=== PATIENT | female | born 1990 | race African-American/Black ===

== ENCOUNTER → 2020-03-02 07:42 | Outpatient (CLI) | payer BC, MEDICAID, SELFPAY ==
--- NOTE | ~2020-03-02 | US_ITS ---
EXAMINATION: US OB >= 14 weeks Fetus DATE: 03/02/2020 08:28 INDICATION: Encounter for supervision are normal . TECHNIQUE: Real-time ultrasound of the pelvis was performed. COMPARISON: None. FINDINGS: There is a single living fetus in breech presentation. The placenta is anterior, 7.2 cm from the cer vix. heart rate is 142 beats per minute (bpm). The amniotic fluid volume is subjectively normal . The following biometric data were obtained: Biparietal diameter (BPD): 3.3 cm; head circumference (HC): 12.8 cm; abdominal circumference (AC): 10 .2 cm; femur length (FL): 1.9 cm. These measurements are concordant. Estimated weight is 144 g +/- 22 g, which correlates with 27th percentile when 08/15/20 is used a s estimated date of delivery. As single measurements, these parameters are each equal to the following estimated gestational ages w ith ranges of +/- 2 standard deviations: BPD: 16 weeks 2 days (15 weeks 1 days - 17 weeks 3 days). HC: 16 weeks 3 days (15 weeks 2 days - 17 weeks 5 days). AC: 16 weeks 2 days (14 weeks 4 days - 17 weeks 6 days). FL: 15 weeks 5 days (14 weeks 3 days - 17 weeks 1 days). estimated gestational age based solely on measurements from this exam is 16 weeks 1 days +/- 1 weeks 1 days. IMPRESSION: 1. Single living fetus in breech presentation. 2. Estimated weight is 144 g +/- 22 g, which correlates with 27th percentile when 08/15/20 is us ed as estimated date of delivery. Reviewed, dictated and finalized at location A. IMPRESSION: 1. Single living fetus in breech presentation. 2. Estimated weight is 144 g +/- 22 g, which correlates with 27th percen tile when 08/15/20 is used as estimated date of delivery.
== END ==
PROVIDERS: Visit Provider Obstetrics & Gynecology
DX: Z34.92 Encounter for supervision of normal pregnancy, unspecified, second trimester (principal); Z3A.16 16 weeks gestation of pregnancy
CPT/HCPCS: 76805

== ENCOUNTER → 2020-03-23 10:47 | Outpatient (CLI) | payer BC, MEDICAID, SELFPAY ==
--- NOTE | ~2020-03-23 | US_ITS ---
EXAMINATION: US OB >= 14 weeks Fetus DATE: 03/23/2020 11:49 INDICATION: Routine care. TECHNIQUE: Real-time ultrasound of the pelvis was performed. COMPARISON: Ultrasound 03/02/2020 FINDINGS: There is a single living fetus in vertex presentation. The placenta is anterior, 8.1 cm from the cer vix. heart rate is 156 beats per minute (bpm). The amniotic fluid volume is subjectively normal . The following biometric data were obtained: Biparietal diameter (BPD): 4.4 cm; head circumference (HC): 16.5 cm; abdominal circumference (AC): 13 .8 cm; femur length (FL): 2.9 cm. These measurements are concordant. Estimated weight is 277 g +/- 42 g, which correlates with 38th percentile when 08/15/20 is used a s estimated date of delivery. As single measurements, these parameters are each equal to the following estimated gestational ages w ith ranges of +/- 2 standard deviations: BPD: 19 weeks 2 days (17 weeks 4 days - 21 weeks 0 days). HC: 19 weeks 2 days (17 weeks 5 days - 20 weeks 5 days). AC: 19 weeks 2 days (17 weeks 1 days - 21 weeks 2 days). FL: 19 weeks 0 days (17 weeks 2 days - 20 weeks 6 days). estimated gestational age based solely on measurements from this exam is 19 weeks 2 days +/- 1 weeks 2 days. The cerebral ventricles, cerebellum, cisterna magna, nuchal fold, and visualized portions of the spin e are normal. The heart is normal. The diaphragm, stomach, kidneys, and bladder are normal. There are two umbilical arteries to yield a 3-vessel cord. The cord insertion is normal. IMPRESSION: 1. Single living fetus in vertex presentation. 2. Estimated weight is 277 g +/- 42 g, which correlates with 38th percentile when 08/15/20 is us ed as estimated date of delivery. 3. Normal anatomic survey. Reviewed, dictated and finalized at location B. IMPRESSION: 1. Single living fetus in vertex presentation. 2. Estimated weight is 277 g +/- 42 g, which correlates with 38th percen tile when 08/15/20 is used as estimated date of delivery. 3. Normal anatomic survey.
== END ==
PROVIDERS: Visit Provider Obstetrics & Gynecology
DX: Z34.92 Encounter for supervision of normal pregnancy, unspecified, second trimester (principal)
CPT/HCPCS: 76805

== ENCOUNTER 2020-06-16 09:57 | Outpatient (CLI) | payer BC, MEDICAID, SELFPAY ==
--- NOTE | ~2020-06-16 | US_ITS ---
EXAMINATION: US OB follow up DATE: 06/16/2020 10:32 INDICATION: Third trimester growth assessment, encounter for supervision of normal TECHNIQUE: Real-time ultrasound of the pelvis was performed. The interpreting radiologist was not pre sent for the study. COMPARISON: 1120 FINDINGS: There is a single living fetus in vertex presentation. The placenta is anterior. card iac activity and movement are noted. heart rate is 131 beats per minute (bpm). The amniot ic fluid index is 16.2 cm which is normal. The following biometric data were obtained: Biparietal diameter (BPD): 8.1 cm; head circumference (HC): 29.4 cm; abdominal circumference (AC): 28 .7 cm; femur length (FL): 6.1 cm. These measurements are concordant. Estimated weight is 1990 g +/- 298 g, which correlates with the 75th percentile when 08/15/2020 i s used as estimated date of delivery. As single measurements, these parameters are each equal to the following estimated gestational ages w ith ranges of +/- 2 standard deviations: BPD: 32 weeks 4 days ( 29 weeks 4 days - 35 weeks 5 days). HC: 32 weeks 3 days ( 29 weeks 3 days - 35 weeks 3 days). AC: 32 weeks 5 days ( 29 weeks 6 days - 35 weeks 5 days). FL: 32 weeks 1 days ( 29 weeks 1 days - 35 weeks 0 days). estimated gestational age based solely on measurements from this exam is 32 weeks 3 days +/- 2 weeks 2 days. IMPRESSION: 1. Single living fetus in vertex presentation. 2. Estimated weight is 1990 g +/- 298 g, which correlates with the 75th percentile when 1 is used as estimated date of delivery. 3. Normal amniotic fluid index. Reviewed, dictated and finalized at location A. ECTIONS ANALYST IMPRESSION: 1. Single living fetus in vertex presentation. 2. Estimated weight is 1990 g +/- 298 g, which correlates with the 75th p ercentile when 08/15/2020 is used as estimated date of delivery. 3. Normal amniotic fluid index.
== END 2020-06-16 09:58 | disposition home or self-care (01) ==
LOC: ANHIMG 10:00
PROVIDERS: Visit Provider Obstetrics & Gynecology
DX: Z36.89 Encounter for other specified antenatal screening (principal)
CPT/HCPCS: 76816

== ENCOUNTER 2020-08-09 05:44 | Inpatient (IN) | payer BC, MEDICAID, SELFPAY ==
--- NOTE | 2020-08-08 14:14 | WPDANESEPP ---
Anes - Eval Pre Procedure Procedure: Operation Date: 08/09/20 07:30 Proposed Procedures p Repeat Low Transverse Section - Yordan Iglesias MD Date/Time: 08/08/20 14:14 Pre Op Diagnosis: PRE ADMIT APPT Patient Data Age: 29 Gender: F Height: Weight: Allergies Allergy/AdvReac Type Severity Reaction Status Date / Time metoclopramide [From Reglan] Allergy Headache Verified 07/28/20 14:12 Home Medications Medication Instructions Recorded Confirmed Type PNV cmb#95-ferrous fumarate-FA 1 tablet PO DAILY 07/28/20 07/28/20 History [] aspirin 81 mg PO DAILY 07/28/20 07/28/20 History cyanocobalamin (vitamin B-12) 1,000 mcg SUBCUT MONTHLY 07/28/20 07/28/20 History [Cyanacobalamin] folic acid 2 mg PO BID 07/28/20 07/28/20 History progesterone micronized 200 mg PO BID 07/28/20 07/28/20 History Patient hx anesthesia problems: none Family hx anesthesia problems: none PMFSH Past Medical History Medical History Family History Family History Other No pertinent family history Social History Social History Substance use: never Gender identity (if verbalized by the patient): Female Spiritual care concerns: No Exam Day of Procedure 08/08/20 14:14
[2020-08-09] VITALS (57 sets, daily range): BP systolic 86–127; BP diastolic 41–91; PULSE 65–102; RESP 15–18; TEMP 36.1–37.1; O2SAT 94–100; BMI 35.2
[2020-08-09] MEDS: LACTATED RINGERS 1,000 ML 125 ML IV CONT ×2 (06:26→14:21)
[2020-08-09 06:37] LABS: Basophils Percent Auto 0.3 % (0.2-1.2); Eosinophils Absolute Auto 0.1 K/mm3 (0-0.3); Hematocrit 30.7 % (37.0-47.0); Hemoglobin 9.2 g/dL (12.0-15.0); Immature Granulocyte Absolute 0.04 K/mm3 (0.00-0.031); Immature Granulocyte Percent A 0.7 % (0-0.5); Lymphocytes Absolute Auto 1.55 K/mm3 (0.9-3.2); Lymphocytes Percent Auto 26.5 % (18.3-44.2); Mean Corpuscular Hemoglobin 22.6 pg (26-34); Mean Corpuscular Volume 75.4 fl (80-100); Mean Platelet Volume 10.2 fl (7.4-10.4); Monocytes Absolute Auto 0.7 K/mm3 (0.1-0.6); Monocytes Percent Auto 11.6 % (2.6-8.5); Neutrophils Absolute Auto 3.5 K/mm3 (1.3-6.7); Neutrophils Percent Auto 59.9 % (45.5-73.1); Nucleated Red Blood Cells Perc 0.5 % (0.0-0.2); Platelet Count Result 274 k/mm3 (150-375); Red Blood Count 4.07 M/mm3 (4.2-5.4); Red Cell Distribution Width 17.6 % (11.5-14.5); White Blood Count 5.8 K/mm3 (4.5-10.0)
--- NOTE | 2020-08-09 06:43 | LDADM ---
This patient, Sunshine Lino, was admitted to Labor/Delivery/Recovery 120 on 08/09/20 at 05:44. Plans for labor, pain management and were discussed with patient. Patient/family oriented to hospital policies and general routines including ID bracelet, bed and alarms, visiting hours, pain management, procedures, bathroom and other care routines, personal items, smoking policy, room service/diet and guest tray routines, security routines, and visiting hours. Patient/Family are encouraged to report perceived risks to care and to ask questions if they do not understand what they are told or what they should do. See OBIX for further documentation.
--- NOTE | 2020-08-09 06:46 | PM.IMHP ---
H&P: HPI History of Present Illness Date/Time: 08/09/20 06:46 Chief Complaint: Repeat c section Narrative: Sunshine Lino is a 29 year old female presenting for scheduled repeat section at 39w 1d gestation. [place] 08/15/20. Reports regular care with Dr. Iglesias, no complications during . Reports no past medical history. No issues/complaint today. Review of Systems Constitutional: Constitutional: Reports no additional constitutional complaints Eyes: Eyes: Reports no additional eye complaints ENT: Reports system reviewed and no additional complaints, except as documented Cardiovascular: Cardiovascular: Reports no additional cardiovascular complaints Respiratory: Respiratory: Reports no additional respiratory complaints Gastrointestinal: Gastrointestinal: Reports no additional gastrointestinal complaints Genitourinary: Genitourinary: Reports no additional female genitourinary complaints Musculoskeletal: Musculoskeletal: Reports no additional musculoskeletal complaints Integumentary/Breasts: Skin/Breast: Reports system reviewed and no additional complaints, except as docu Neurologic: Reports system reviewed and no additional complaints, except as documented Psychiatric: Psychiatric: Reports no additional psychiatric complaints Endocrine: Endocrine: Reports no additional endocrine complaints Hematologic/Lymphatic: Hematologic/Lymphatic: Reports no additional hematologic/lymphatic complaints Allergic/Immunologic: Allergic/Immunologic: Reports no additional allergic/immunologic complaints PMFSH Past Medical History Medical History ADD (attention deficit disorder) Depression History of MTHFR mutation Surgical History Surgical History History of Family History Family History Other No pertinent family history Social History Social History Smoking status: Never smoker Substance use: never Gender identity (if verbalized by the patient): Female Spiritual care concerns: No Meds Home Medications and Allergies Home Medications Medication Instructions Recorded Confirmed Type PNV cmb#95-ferrous fumarate-FA 1 tablet PO DAILY 07/28/20 08/09/20 History [] aspirin 81 mg PO DAILY 07/28/20 08/09/20 History cyanocobalamin (vitamin B-12) 1,000 mcg SUBCUT MONTHLY 07/28/20 08/09/20 History [Cyanacobalamin] folic acid 2 mg PO BID 07/28/20 08/09/20 History progesterone micronized 200 mg PO BID 07/28/20 08/09/20 History Allergies Allergy/AdvReac Type Severity Reaction Status Date / Time metoclopramide [From Reglan] Allergy Headache Verified 07/28/20 14:12 Vital Signs Vital Signs - 24 hr 08/09/20 06:15 Pulse Rate 94 Blood Pressure 107/65 Exam Const: General: cooperative, healthy appearing, comfortable, no acute distress, well developed, alert, awake, Physically active and acute distress HENMT: Head: normocephalic and atraumatic Eyes: General: appearance normal, both eyes and all related structures Resp: Effort & Inspection: normal respiratory effort, able to speak in complete sentences, normal respiratory pattern, no audible wheezes and no cough Cardio: Rate: regular rate GI: Inspection: normal to inspection and other (Gravid) : General: Yes deferred Neuro: General: oriented to person, oriented to place, oriented to time and patient oriented x3 Psych: Appearance: grossly normal Mental Status: mental status grossly normal Speech and movement: Normal speech and movement present Affect: normal affect Attitude: cooperative Thought process: Normal thought process present Thought content: Yes Normal thought content present Insight: Good insight present (Psych) Judgement: Good judgement present (Psych) H&P: Results La
--- NOTE | 2020-08-09 06:55 | WPDHPUPDATE1 ---
History and Physical Update Update Date/Time: 08/09/20 06:55 History and Physical has been reviewed, including an updated exam of the patient. There are NO changes in the patient's condition. Risks, benefits, and alternatives have been discussed and questions answered. Patient agrees to proceed with procedure.
--- NOTE | 2020-08-09 07:04 | WPDANESEPPF ---
Anes - Initial Pre Proc Eval Procedure: Operation Date: 08/09/20 07:30 Proposed Procedures p Repeat Low Transverse Section - Yordan Iglesias MD Date/Time: 08/09/20 07:04 Surgeon: Yordan Iglesias MD Pre Op Diagnosis: Repeat CSection Patient Data Age: 29 Gender: F Height: 1.57 m Weight: 87.5 kg Last Vital Signs Pulse 94 08/09/20 06:15 BP 107/65 08/09/20 06:15 Allergies Allergy/AdvReac Type Severity Reaction Status Date / Time metoclopramide [From Reglan] Allergy Headache Verified 07/28/20 14:12 Home Medications Medication Instructions Recorded Confirmed Type PNV cmb#95-ferrous fumarate-FA 1 tablet PO DAILY 07/28/20 08/09/20 History [] aspirin 81 mg PO DAILY 07/28/20 08/09/20 History cyanocobalamin (vitamin B-12) 1,000 mcg SUBCUT MONTHLY 07/28/20 08/09/20 History [Cyanacobalamin] folic acid 2 mg PO BID 07/28/20 08/09/20 History progesterone micronized 200 mg PO BID 07/28/20 08/09/20 History Laboratory Tests 08/09/20 08/09/20 06:18 06:18 WBC 5.8 K/mm3 K/mm3 (4.5-10.0) RBC 4.07 M/mm3 L M/mm3 (4.2-5.4) Hgb 9.2 g/dL L g/dL (12.0-15.0) Hct 30.7 % L % (37.0-47.0) MCV 75.4 fl L fl (80-100) MCH 22.6 pg L pg (26-34) MCHC 30.0 g/dl L g/dl (32-36) RDW 17.6 % H % (11.5-14.5) Plt Count 274 k/mm3 k/mm3 (150-375) MPV 10.2 fl fl (7.4-10.4) Immature Gran % (Auto) 0.7 % H % (0-0.5) Neut % (Auto) 59.9 % % (45.5-73.1) Lymph % (Auto) 26.5 % % (18.3-44.2) Dunn % (Auto) 11.6 % H % (2.6-8.5) Eos % (Auto) 1.0 % % (0-4.4) Baso % (Auto) 0.3 % % (0.2-1.2) Lymph # (Auto) 1.55 K/mm3 K/mm3 (0.9-3.2) Dunn # (Auto) 0.7 K/mm3 H K/mm3 (0.1-0.6) Eos # (Auto) 0.1 K/mm3 K/mm3 (0-0.3) Baso # (Auto) 0.0 K/mm3 K/mm3 (0.0-0.1) Abs Immat Gran (auto) 0.04 K/mm3 H K/mm3 (0.00-0.031) Absolute Neuts (auto) 3.5 K/mm3 K/mm3 (1.3-6.7) Absolute Nucleated RBC 0.0 K/mm3 K/mm3 (0.0-0.012) Nucleated RBC % 0.5 % H % (0.0-0.2) RPR Pending Patient hx anesthesia problems: none Family hx anesthesia problems: none PMFSH Past Medical History Medical History ADD (attention deficit disorder) Depression History of MTHFR mutation Surgical History Surgical History History of Family History Family History Other No pertinent family history Social History Social History Smoking status: Never smoker Substance use: never Gender identity (if verbalized by the patient): Female Spiritual care concerns: No Anes - Eval Final PreProcedure Day of Procedure 08/09/20 07:04 Patient weight: obese Heart: regular rate and rhythm Lungs: clear to auscultation and normal air movement Airway: Mallampati scale class II Neurological: alert and oriented Last oral intake: >/= 8 hours ASA classification: III Emergent: no Anesthetic plan: proceed Anesthesia type and monitoring: regional spinal and standard monitoring Informed Consent: The patient's anesthetic plan and its attendant risks and benefits were discussed with the patient/family/POA. Questions were solicited and answers provided to the satisfaction of the patient/family/POA.
[2020-08-09] MEDS: ceFAZolin 2 GM/D5W 50 ML 2 GM/50 ML BAG IVPB (07:37)
--- NOTE | 2020-08-09 09:00 | PM.OBPRVD ---
OB - Delivery Note Procedure Delivery date: 08/09/20 Procedure: Procedures Operation Date: 08/09/20 07:30 Actual Procedures Side Surgeon p Repeat Low Transverse Section Gopal Nair DO events: Previous Intrapartal events: None Induction method: none Delivery monitor: external FHT and external uterine Route of delivery: (Low Transverse) Quantitative Blood Loss (ml): 585 Anesthesia type: Spinal Disposition: PACU Complications: None apparent Narrative: Patient was transferred to the OR table and once adequate anesthesia was established, she was placed in dorsal position with left tilt of the hips. Preoperative antibiotics were administered. A timeout was performed to identify the correct patient and procedure. A pfannenstiel skin incision was made with the scalpel. Subsequent dissection of the subcutaneous layer was performed with the scalpel down to the level of the fascia. Bovie was used to obtain hemostasis from small bleeding vessels. The fascia was nicked at the midline. Fasical incision was extended laterally with Lauren scissors. Angélica clamps were used to tent the superior aspect of the fascia up and the rectus muscles were carefully dissected off the fascia. Attention was then turned to the inferior aspect of the fascia and this was tented up with the Angélica clamps and rectus muscles dissected off the fascia. The rectus muscles were divided at the midline, adhesions were noted here and the peritoneum was bluntly entered. Zurdo self-retaining retractor was inserted. A low transverse uterine incision was made. This was extended bluntly with cephalad and caudad force. Amniotic sac was entered and clear fluid was noted. The 's head was elevated to the level of the hysterotomy and delivered with gentle fundal pressure. Nuchal cord was reduced, then deliverey of the rest of the body. Cord was clamped and cut and was handed off the nursing staff. Placenta was expressed. Hysterotomy was examined for any extensions and no extensions were noted. This was reapproximated with 0 Vicryl in continuous locking fashion. Good hemostasis noted. Bilateral ovaries and fallopian tubes appeared normal. Paracolic gutter were cleaned of any clots.The fascia was then reapproximated with 0 Vicryl in continuos non-locking fashion. Subcutaneous tissue was reapproximated with 0 plain. The skin was reapproximated with 4-0 Monocryl in subcuticular fashion. Sterile bandage was applied. All sponge and instrument counts were correct during and at the end of the procedure. Patient tolerated the procedure was well and was transferred to recovery. Baby Date of : 08/09/20 Time of : 08:22 Weeks of gestation at delivery: 39 Infant gender: Female Weight (pounds): 8 Weight (ounces): 0 presentation: vertex Placenta delivery description: Expressed cord vessel description: 3 Vessels score one minute: 9 score five minutes: 9
[2020-08-09] MEDS: OXYTOCIN 30 UNITS/NS 500 ML 30 UNITS/500 ML BAG 125 UNITS IV CONT (09:43)
--- NOTE | 2020-08-09 11:19 | PC.NURSE ---
Patient transferred to post room #286 via stretcher. Support person present. Oriented to unit, room, information board, rooming in, admission packet and security measures. Patient verbalizes understanding.
[2020-08-09] MEDS: LORATADINE 10 MG TABLET PO (12:04)
[2020-08-09 13:03] LABS: Rapid Plasma Reagin Non-Reactive (NonReactive)
[2020-08-09] MEDS: KETOROLAC 30 MG/ML VIAL (*BKC) IV PUSH (17:37)
[2020-08-09] MEDS: diphenhydrAMINE HCl INJ 50 MG/ML VIAL 12.5 MG IV PUSH (17:37)
[2020-08-09] MEDS: HYDROcodone/acetaminophen (*CRX) 5-325 MG TABLET 1 TAB PO (22:59)
[2020-08-10] MEDS: IBUPROFEN 600 MG TABLET PO ×4 (00:23→23:15)
[2020-08-10 00:48] VITALS: BP 122/67; PULSE 96; RESP 16; TEMP 36.6; O2SAT 98
[2020-08-10] MEDS: HYDROcodone/acetaminophen (*CRX) 5-325 MG TABLET 1 TAB PO ×4 (04:14→23:15)
[2020-08-10 04:33] VITALS: BP 93/58; PULSE 88; RESP 18; TEMP 36.5; O2SAT 98
[2020-08-10 05:21] LABS: Basophils Percent Auto 0.2 % (0.2-1.2); Eosinophils Absolute Auto 0.1 K/mm3 (0-0.3); Eosinophils Percent Auto 1.7 % (0-4.4); Hematocrit 25.3 % (37.0-47.0); Hemoglobin 7.5 g/dL (12.0-15.0); Immature Granulocyte Absolute 0.04 K/mm3 (0.00-0.031); Immature Granulocyte Percent A 0.5 % (0-0.5); Lymphocytes Absolute Auto 1.69 K/mm3 (0.9-3.2); Mean Corpuscular HGB Conc 29.6 g/dl (32-36); Mean Corpuscular Hemoglobin 22.6 pg (26-34); Mean Corpuscular Volume 76.2 fl (80-100); Mean Platelet Volume 10.6 fl (7.4-10.4); Monocytes Absolute Auto 0.9 K/mm3 (0.1-0.6); Monocytes Percent Auto 10.8 % (2.6-8.5); Neutrophils Absolute Auto 5.6 K/mm3 (1.3-6.7); Neutrophils Percent Auto 66.8 % (45.5-73.1); Nucleated Red Blood Cells Absolute Auto 0.1 K/mm3 (0.0-0.012); Nucleated Red Blood Cells Perc 0.6 % (0.0-0.2); Platelet Count Result 218 k/mm3 (150-375); Red Blood Count 3.32 M/mm3 (4.2-5.4); Red Cell Distribution Width 17.8 % (11.5-14.5); White Blood Count 8.4 K/mm3 (4.5-10.0)
[2020-08-10 06:06] LABS: Platelet Estimate Adequate (Adequate)
[2020-08-10 06:07] LABS: Hypochromasia 1+ (NORMAL); Ovalocytes 1+ (NORMAL)
--- NOTE | 2020-08-10 06:48 | P.PNOB_ITS ---
OB - PN: Subj Subjective Date/time seen: 08/10/20 06:48 Interval history: pod1 Patient comments: no complaints, pain well controlled and tolerating diet baby status: doing well and bottle feeding well Marcella feeding status: exclusively bottle feeding OB - PN: Obj Data Labs CBC & Chem 7: 08/10/20 04:09 OB - PN A/P Assessment and Plan (1) Term delivered: Code(s): O80 - Encounter for full-term uncomplicated delivery Status: Acute (2) Status post repeat low transverse section: Code(s): Z98.891 - History of uterine scar from previous surgery Status: Acute (3) Anemia: Code(s): D64.9 - Anemia, unspecified Status: Acute Time Spent With Patient Time: Total time spent is greater than 50% in coordination of care (as documented) at patient's floor/unit and/or counseling patient: Review of Systems Review of Systems: All systems reviewed & are unremarkable except as noted in HPI and below Exam Const: General: cooperative Nutritional Appearance: average body habitus Orientation/consciousness: patient oriented x3 Limitations: no limitations HENMT: Head: normal to inspection Eyes: General: appearance normal, both eyes and all related structures Neck: Neck: normal visual inspection Chest: Chest palpation & inspection: normal inspection of the chest Resp: Effort & Inspection: normal respiratory effort Auscultation: clear to auscultation bilaterally Cardio: Rate: regular rate Rhythm: regular rhythm GI: Inspection: normal to inspection and incision (ddi) Auscultation: normal bowel sounds : External Female Exam: normal external appearance Back/Spine/Pelvis: Back: no CVA tenderness Skin: General skin exam: normal color Neuro: General: patient oriented x3 Extrem: General: normal to inspection and full ROM Psych: Appearance: grossly normal Mental Status: mental status grossly normal
[2020-08-10] MEDS: POLYSACCHARIDE IRON COMPLEX 150 MG CAPSULE PO ×2 (07:33→16:24)
[2020-08-10] MEDS: DOCUSATE SODIUM 100 MG CAPSULE PO ×2 (07:33→16:24)
--- NOTE | 2020-08-10 07:53 | WPDANLDNPN2 ---
Anes-Prog Note L&D-Neuraxial Date/Time: 08/10/20 07:53 Neuraxial medications: intrathecal PF morphine Opiod-related complaints: none Patient feedback: Patient satisfied with post-operative pain management.
--- NOTE | 2020-08-10 07:53 | WPDANLDPN2 ---
Anes-Prog Note L&D Date/Time: 08/10/20 07:53 Comfortable throughout: section Neuraxial method: spinal Epidural/Spinal procedure site: clean & non-tender Neuro status: Neuro function grossly intact. Cardiovascular status: normal Respiratory status: normal Airway patency: baseline Mental status: baseline Post-Op hydration status: normal Vital Signs: Last Vital Signs Temp 36.5 C 08/10/20 04:33 Pulse 88 08/10/20 04:33 Resp 18 08/10/20 04:33 BP 93/58 L 08/10/20 04:33 Pulse Ox 98 08/10/20 04:33 Pain score (VAS): no complaints I/O: Intake & Output 08/09/20 08/09/20 08/10/20 15:59 23:59 07:59 Intake Total 150 1200 500 Output Total 10 1980 950 Balance 140 -672 -802 Post-procedural complaints: none Patient feedback: Patient satisfied with anesthetic care.
--- NOTE | 2020-08-10 07:54 | WPDANLDNPN2 ---
Anes-Prog Note L&D-Neuraxial Date/Time: 08/10/20 07:54 Neuraxial medications: intrathecal PF morphine Opiod-related complaints: none Patient feedback: Patient satisfied with post-operative pain management.
[2020-08-10 08:20] VITALS: BP 110/66; PULSE 86; RESP 16; TEMP 36.9; O2SAT 100
[2020-08-10] MEDS: LORATADINE 10 MG TABLET PO (09:36)
[2020-08-10] MEDS: MULTIVIT/MIN/PREN/FOL AC/IRON TABLET 1 TAB PO (09:36)
--- NOTE | 2020-08-10 15:53 | PM.OBDSVD ---
DS: Admitting Diagnosis Admitting Diagnosis Admitting Diagnosis: Term Repeat c section DS: Discharge Diagnosis Discharge Diagnosis (1) History of section: Code(s): Z98.891 - History of uterine scar from previous surgery Status: Acute (2) Status post repeat low transverse section: Code(s): Z98.891 - History of uterine scar from previous surgery Status: Acute (3) Anemia: Code(s): D64.9 - Anemia, unspecified Status: Acute (4) Term delivered: Code(s): O80 - Encounter for full-term uncomplicated delivery Status: Acute OB - DS: Summary Hospital Course Time spent discussing smoking cessation with patient: 3 to 10 minutes OB Procedures : Ultrasound OB Procedures Intrapartum: (repeat) low cervical, transverse OB Procedures: : None Peripartum Data Delivery Method: Section Laceration Description: None Episiotomy description: None Procedures: Procedures Operation Date: 08/09/20 07:30 Actual Procedures Side Surgeon p Repeat Low Transverse Section Gopal Nair, complications: none 1: Gender: Female Disposition of : home Status at Discharge Functional status at discharge: independent ambulation Overall status at discharge: patient is back to baseline Time Spent with Patient Time attestation: Total time spent providing and/or coordinating discharge services: Time spent: Less than 30 minutes Exam Const: General: cooperative, healthy appearing, comfortable, no acute distress, alert, awake and Physically active Nutritional Appearance: average body habitus and overweight Orientation/consciousness: patient oriented x3 Limitations: no limitations HENMT: Head: normal to inspection Eyes: General: appearance normal, both eyes and all related structures Neck: Neck: normal visual inspection and full ROM Chest: Chest palpation & inspection: normal inspection of the chest Breast/axilla inspection: normal inspection of the breasts Resp: Effort & Inspection: normal respiratory effort Auscultation: clear to auscultation bilaterally Cardio: Rate: regular rate Rhythm: regular rhythm Heart sounds: S1 normal heart sound present and S2 normal heart sound present GI: Inspection: normal to inspection GI Palp: Yes Soft to palpation Percussion: Yes normal to percussion Auscultation: normal bowel sounds : External Female Exam: normal external appearance Bimanual exam- vagina & uterus: non-tender Back/Spine/Pelvis: Back: no CVA tenderness Skin: General skin exam: normal color Neuro: General: patient oriented x3, gait normal, tone normal, moves all extremities, Normal light touch and pain sensation, no meningeal signs, no focal motor deficits and CN's II-XI intact bilaterally Extrem: General: normal to inspection, full ROM and no calf tenderness Psych: Appearance: grossly normal Mental Status: mental status grossly normal Speech and movement: Normal speech and movement present Affect: normal affect Attitude: cooperative Thought process: Normal thought process present Thought content: Yes Normal thought content present Insight: Good insight present (Psych) Judgement: Good judgement present (Psych) DS: Data Data Completed and Pending Pending studies at discharge: Pending at discharge 08/09/20 08:39 Surgical [PTH] Routine Labs on day of discharge: Labs from last 24 hours 08/10/20 04:09 WBC 8.4 RBC 3.32 L Hgb 7.5 L Hct 25.3 L MCV 76.2 L MCH 22.6 L MCHC 29.6 L RDW 17.8 H Plt Count 218 MPV 10.6 H Immature Gran % (Auto) 0.5 Neut % (Auto) 66.8 Lymph % (Auto) 20.0 Petroleum % (Auto) 10.8 H Eos % (Auto) 1.7 Baso % (Auto) 0.2 Lymph # (Auto) 1.69 Petroleum # (Auto) 0.9 H Eos # (Auto) 0.1 Baso # (Auto) 0.0 Abs Immat Gran (auto) 0.04 H Absolute Neuts (auto) 5.6 Absolute Nucleated RBC 0.1 H Nucleated RBC % 0.6 H
[2020-08-10] MEDS: SIMETHICONE 80 MG TAB.CHEW PO ×2 (16:26→23:14)
--- NOTE | 2020-08-10 18:01 | PC.NURSE ---
1530-RN contacted regarding rounding on patient today. Per Dr. Nair, Álvaro will be rounding on patients after clinic hours today.
[2020-08-10 20:20] VITALS: BP 118/62; PULSE 104; RESP 16; TEMP 36.8; O2SAT 99
[2020-08-11] MEDS: SIMETHICONE 80 MG TAB.CHEW PO ×3 (04:26→16:25)
[2020-08-11] MEDS: HYDROcodone/acetaminophen (*CRX) 5-325 MG TABLET 1 TAB PO ×4 (04:26→20:18)
--- NOTE | 2020-08-11 06:52 | PM.OBPNVD ---
OB - PN: Subj Subjective Date/time seen: 08/11/20 06:52 Interval history: pod2 Patient comments: no complaints, pain well controlled, tolerating diet and flatus present [place] baby status: doing well [place] feeding status: exclusively bottle feeding OB - PN: Obj Data Labs CBC & Chem 7: 08/10/20 04:09 OB - PN A/P Assessment and Plan (1) Term delivered: Code(s): O80 - Encounter for full-term uncomplicated delivery Status: Acute (2) Status post repeat low transverse section: Code(s): Z98.891 - History of uterine scar from previous surgery Status: Acute (3) Anemia: Code(s): D64.9 - Anemia, unspecified Status: Acute Time Spent With Patient Time: Total time spent is greater than 50% in coordination of care (as documented) at patient's floor/unit and/or counseling patient: Review of Systems Review of Systems: All systems reviewed & are unremarkable except as noted in HPI and below Exam Const: General: cooperative HENMT: Head: normal to inspection Eyes: General: appearance normal, both eyes and all related structures Neck: Neck: normal visual inspection Chest: Chest palpation & inspection: normal inspection of the chest Resp: Effort & Inspection: normal respiratory effort Cardio: Rate: regular rate Rhythm: regular rhythm GI: Inspection: normal to inspection and incision (cdi) Auscultation: normal bowel sounds : External Female Exam: normal external appearance Bimanual exam- vagina & uterus: non-tender Back/Spine/Pelvis: Back: no CVA tenderness Skin: General skin exam: normal color Neuro: General: patient oriented x3 and moves all extremities Extrem: General: normal to inspection and full ROM Psych: Appearance: grossly normal Mental Status: mental status grossly normal Speech and movement: Normal speech and movement present
[2020-08-11] MEDS: MULTIVIT/MIN/PREN/FOL AC/IRON TABLET 1 TAB PO (07:32)
[2020-08-11] MEDS: POLYSACCHARIDE IRON COMPLEX 150 MG CAPSULE PO (07:32)
[2020-08-11] MEDS: IBUPROFEN 600 MG TABLET PO ×2 (07:33→16:21)
[2020-08-11 08:15] VITALS: BP 105/69; PULSE 90; RESP 16; TEMP 37.1; O2SAT 99
--- NOTE | 2020-08-11 10:18 | PC.NURSE ---
Called Dr. Iglesias's office to see if he would be coming in to see the patient and do the circumcision. He was not aware that the patient had a male, in the delivery notes it was documented a female. He stated he would try to come over tomorrow to do the circumcision.
--- NOTE | 2020-08-11 11:36 | PC.NURSE ---
Consulted with patient, mom states baby has not been latching well. While talking to mom infant latches on and continues to breastfeed well. Reviewed feeding cues, frequencies, duration of feedings, feeding elimination flow sheet, and signs of adequate intake. Demonstrated stimulation techniques to wake infant for feeding. Reviewed positioning/alignment, holding breast and asymmetrical latch on. Infant was able to latch correctly. nursed eagerly, with steady draws and frequent swallowing noted. Reviewed signs of a correct latch, effective nursing and suck swallow ratio. Infant was able to maintain latch without discomfort to mother. Nipple care reviewed. Instructed mother to call out for RN assistance if she is unable to latch for feeding or she has discomfort with nursing. Instructed feeding should be initiated three hours from start of last feeding or if feeding cues are noted before. Encouraged mom to start pumping when infant is not effectively going to breast to encourage milk supply. Mom states she was going to start pumping once she was home. Mom states she will call out if she wants a pump. Mom educated on supply and demand and how to encourage milk to come in. Mom states she is going to give the baby bottles after the circumcision and not put him to breast. Mom encouraged to first put the infant to breast and then to do a supplement after if desired. Mother voiced understanding of information shared.
[2020-08-11] MEDS: DOCUSATE SODIUM 100 MG CAPSULE PO (16:22)
[2020-08-11 20:15] VITALS: BP 108/68; PULSE 96; RESP 16; TEMP 36.7; O2SAT 99
[2020-08-12] MEDS: SIMETHICONE 80 MG TAB.CHEW PO ×3 (02:11→11:19)
[2020-08-12] MEDS: HYDROcodone/acetaminophen (*CRX) 5-325 MG TABLET 1 TAB PO ×2 (02:12→06:48)
[2020-08-12] MEDS: IBUPROFEN 600 MG TABLET PO ×2 (02:12→11:20)
[2020-08-12] MEDS: DOCUSATE SODIUM 100 MG CAPSULE PO (06:49)
[2020-08-12] MEDS: MULTIVIT/MIN/PREN/FOL AC/IRON TABLET 1 TAB PO (06:49)
[2020-08-12] MEDS: POLYSACCHARIDE IRON COMPLEX 150 MG CAPSULE PO (06:49)
[2020-08-12 08:30] VITALS: BP 120/72; PULSE 98; RESP 18; TEMP 37.1; O2SAT 99
[2020-08-12 08:35] VITALS: PULSE 96; RESP 16; O2SAT 99
--- NOTE | 2020-08-12 09:29 | WPDANLDPN2 ---
Anes-Prog Note L&D Date/Time: 08/12/20 09:29 Comfortable throughout: section Neuraxial method: spinal Epidural/Spinal procedure site: clean & non-tender Neuro status: Neuro function grossly intact. Cardiovascular status: normal Respiratory status: normal Airway patency: baseline Mental status: baseline Post-Op hydration status: normal Vital Signs: Last Vital Signs Temp 36.7 C 08/11/20 20:15 Pulse 96 08/12/20 08:35 Resp 16 08/12/20 08:35 BP 108/68 08/11/20 20:15 Pulse Ox 99 08/12/20 08:35 Pain score (VAS): 0 Post-procedural complaints: none Patient feedback: Patient satisfied with anesthetic care.
--- NOTE | 2020-08-12 10:13 | PC.NURSE ---
Breast pump provided due to mom wanting to pump for baby at this time. Instructions given on breast pump care and usage, pumping schedule, nipple care, and collection and storage of breast milk. Encouraged [id number]-[id number], breast massage and manual expression to stimulate supply. Assessed patient for correct flange size, placement and draw. Patient verbalizes and demonstrates understanding of instructions. Mother verbalizes she has been doing bottles of formula since last evening. She denies any nipple discomfort, is feeding as required and waking infant to feed if needed. Mother states she wants to wait till her milk comes in to feed baby at the breast. Mom encouraged to pump if she wants to keep her breastmilk supply up. Mom agrees to plan. Reviewed transition to breast milk, signs of adequate intake, and engorgement/relief. Instructed to call ICP if intake/output less than required. Reviewed community resources on the [facility] website and in the Mom/Baby guide. Information on outpatient services provided. Mother has no further questions at this time.
[2020-08-12] MEDS: HYDROcodone/acetaminophen (*CRX) 10-325 MG TABLET 1 TAB PO (11:19)
[2020-08-14 13:05] VITALS: BP 113/72; PULSE 94; RESP 16; TEMP 36.2; O2SAT 99
== END 2020-08-12 12:15 | disposition home or self-care (01) | DRG 788 ==
LOC: ANHLDR 05:48 → ANHOB2 11:25
PROVIDERS: Admitting Provider Obstetrics & Gynecology; Visit Provider Obstetrics & Gynecology
PROC: 10D00Z1 Extraction of Products of Conception, Low, Open Approach (ICD-10-PCS; CPT 59514; principal; 2020-08-09 07:30)
DX: O34.211 Maternal care for low transverse scar from previous cesarean delivery (principal); Z37.0 Single live birth; Z3A.39 39 weeks gestation of pregnancy; O69.81X0 Labor and delivery complicated by cord around neck, without compression, not applicable or unspecified; F98.8 Other specified behavioral and emotional disorders with onset usually occurring in childhood and adolescence; O99.344 Other mental disorders complicating childbirth; F32.9 Major depressive disorder, single episode, unspecified; O99.214 Obesity complicating childbirth; E66.9 Obesity, unspecified; O99.02 Anemia complicating childbirth; D64.9 Anemia, unspecified
CPT/HCPCS: 36415; 85025; 86592; 86850; 86900; 86901; 88307; A9270; J0131; J0690; J1200; J1885; J2274; J2370; J2405; J2590; J7120

== ENCOUNTER 2021-04-14 09:13 | Emergency (ER) | payer OTHER, BC, MEDICAID, SELFPAY ==
--- NOTE | ~2021-04-14 | XR_ITS ---
EXAMINATION: XR lumbar spine min 4V DATE: 04/14/2021 10:12 INDICATION: Low back pain TECHNIQUE: Anteroposterior, lateral, and bilateral oblique views of the lumbar spine, and cone-down l ateral view of the lumbosacral junction were obtained. COMPARISON: None. FINDINGS: There is no fracture, dislocation, or subluxation. The vertebral body heights, alignment, a nd intervertebral disc spaces are normal. The paravertebral soft tissues are unremarkable. IMPRESSION: 1. No acute osseous abnormality. Reviewed, dictated and finalized at location A.
[2021-04-14 09:21] VITALS: BP 104/87; PULSE 76; RESP 20; TEMP 37.2; O2SAT 99
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
[2021-04-14 11:10] VITALS: BP 110/68; PULSE 68; RESP 16; O2SAT 100
== END 2021-04-14 11:10 | disposition home or self-care (01) ==
PROVIDERS: Emergency Provider Emergency Medicine; PCP Internal Medicine Gastroenterology
DX: S39.012A Strain of muscle, fascia and tendon of lower back, initial encounter (principal); V43.52XA Car driver injured in collision with other type car in traffic accident, initial encounter
CPT/HCPCS: 72110; 81025; 99283

== ENCOUNTER 2023-04-05 12:10 | Outpatient (CLI) | payer OTHER, SELFPAY ==
[2023-04-05 13:56] LABS: Basophils Percent Auto 0.6 % (0.2-1.2); Eosinophils Absolute Auto 0.2 K/mm3 (0-0.3); Eosinophils Percent Auto 3.9 % (0-4.4); Hematocrit 37.1 % (37.0-47.0); Hemoglobin 11.4 g/dL (12.0-15.0); Immature Granulocyte Absolute 0.02 K/mm3 (0.00-0.031); Immature Granulocyte Percent A 0.4 % (0-0.5); Lymphocytes Percent Auto 37.1 % (18.3-44.2); Mean Corpuscular HGB Conc 30.7 g/dl (32-36); Mean Corpuscular Hemoglobin 24.8 pg (26-34); Mean Corpuscular Volume 80.8 fl (80-100); Mean Platelet Volume 11.1 fl (7.4-10.4); Monocytes Absolute Auto 0.4 K/mm3 (0.1-0.6); Monocytes Percent Auto 7.6 % (2.6-8.5); Neutrophils Absolute Auto 2.7 K/mm3 (1.3-6.7); Neutrophils Percent Auto 50.4 % (45.5-73.1); Platelet Count Result 300 k/mm3 (150-375); Red Blood Count 4.59 M/mm3 (4.2-5.4); Red Cell Distribution Width 15.9 % (11.5-14.5); White Blood Count 5.4 K/mm3 (4.5-10.0)
[2023-04-05 14:12] LABS: Alanine Aminotransferase 18 U/L (6-35); Albumin Level 4.5 g/dL (3.5-5.1); Alkaline Phosphatase 47 U/L (38-126); Anion Gap 7 mmol/L (8-16); Aspartate Amino Transferase 24 U/L (14-36); Bilirubin,Total 0.5 mg/dL (0.2-1.3); Blood Urea Nitrogen 13 mg/dL (7-17); Calcium 9.2 mg/dL (8.4-10.2); Carbon Dioxide 26 mmol/L (22-30); Chloride 102 mmol/L (98-107); Cholesterol 177 mg/dL (0-200); Estimated Glomerular Filt Rate > 60; Glucose 87 mg/dL (65-110); HDL Direct 47 mg/dL; Potassium 3.9 mmol/L (3.4-5.0); Sodium 135 mmol/L (137-145); Triglycerides 102 mg/dL (<150)
[2023-04-05 14:20] LABS: LDL Cholesterol Direct 93 mg/dL
[2023-04-05 15:41] LABS: Vitamin D 25 Hydroxy 21.2 ng/mL
== END 2023-04-05 12:11 | disposition home or self-care (01) ==
PROVIDERS: Visit Provider Obstetrics & Gynecology
DX: G47.00 Insomnia, unspecified (principal); R53.83 Other fatigue; Z11.8 Encounter for screening for other infectious and parasitic diseases
CPT/HCPCS: 36415; 80053; 80061; 82306; 84443; 85025

== ENCOUNTER 2023-11-20 09:05 | Outpatient (CLI) | payer OTHER, SELFPAY ==
--- NOTE | 2023-11-28 17:16 | WPDHOMESLEEP ---
Sleep Study - Home Unattended Date of Study: 11/20/23 Ordering Provider: Karina Rodriguez APRN Interpreting Provider: Shanae Hand, DO Home Sleep Study Type: Watch PAT Height: 1.57 m Weight: 76.204 kg Body Mass Index: 30.7 Neck Circumference (inches): 13.25 [place]: 12 Reason for Sleep Study Difficulty staying asleep Sleep History The patient is a 33-year-old female with ADD, depression and iron deficiency that had a sleep study ordered by her primary care for evaluation of sleep apnea. The patient denies awakening from sleep short of breath. She denies awakening at night with heartburn, belching or cough. She rarely snores and it is rarely loud enough that others complain. She rarely has trouble sleeping when she has a cold. She denies waking up gasping for air throughout the night. She denies having breathing problems at night observed by herself or others. She denies sweating excessively at night. She denies having heart palpitations or irregular heartbeats during the night. She rarely falls asleep during the day but never while driving. She denies sleep paralysis, cataplexy and hypnagogic / hypnopompic hallucinations. She denies having trouble at school or work due to sleepiness. She denies feeling afraid of going to sleep. She denies having nightmares. She frequently remembers her dreams. She frequently has thoughts racing through her mind. She occasionally feels sad or depressed. She constantly has anxiety. She denies having muscular tension. She denies noticing parts of her body jerk. She denies kicking during the night. She denies having crawling and aching feelings in her legs and denies having leg pain during the night. She denies grinding her teeth during sleep and denies awakening with morning jaw pain. She denies being bothered by pain during the day and denies being awakened by pain during the night. She denies waking up feeling stiff in the morning. She denies waking up with sore or achy muscles. She denies waking up with pain in the neck, spine and other joints. The patient goes to bed between 11:30 p.m. to 12:00 a.m. on weekdays and weekends. It takes her 15-30 minutes to fall asleep. She wakes up once throughout the night for unknown reasons and she will walk around the house and play games on her phone until she is able to fall back asleep which is usually within 20-30 minutes. She wakes up at 6:00 a.m. on both weekdays and weekends. She typically gets 5-6 hours of sleep per night. She does not stay in bed after waking up in the morning. She currently lives with her children. She denies consuming any caffeinated beverages within 2 hours of bedtime. She denies engaging in physical exercise before bedtime. She will watch television before falling asleep. She denies taking naps in afternoon or the evening. She consumes coffee every day. She denies tobacco, alcohol and recreational drug use. [facility] Past Medical History Medical History ADD (attention deficit disorder) Depression History of History of miscarriage History of MTHFR mutation Term Term delivered Surgical History Surgical History History of History of section Family History Family History Other No pertinent family history Social History Social History Smoking status: Never smoker Alcohol intake: current Alcohol use details: Social Substance use: never Lack of Transportation: No Lack of Food: Never True Current Housing: I Have Housing Concerned About Future Housing: No Difficulty Paying Gas/Electric Bills: No Difficulty Paying for Meds: No Currently Unemployed: No Education: Trade/Vocational Certificate [place]
[2023-11-28 17:27] VITALS: BMI 30.7
== END 2023-11-21 10:46 | disposition home or self-care (01) ==
LOC: ANHCSM 09:06
PROVIDERS: PCP Nurse Practitioner Family; Visit Provider Nurse Practitioner Family
DX: G47.00 Insomnia, unspecified (principal); R06.83 Snoring
CPT/HCPCS: 95800